=== PATIENT | male | born 1990 | race Caucasian/White ===

== ENCOUNTER 2017-09-02 10:40 | Emergency (ER) | payer OTHER ==
[~2017-09-02] VITALS: Ht 172.7 cm; Wt 95.3 kg
[2017-09-02] MEDS ORDERED: SODIUM CHLORIDE 0.9% 1000ML 1,000 ML ONE (10:54)
[2017-09-02] MEDS ORDERED: TETRACAINE HCL 0.5% OPTH SOLN 4 ML BTL OP ONE (11:00)
[2017-09-02] MEDS ORDERED: SODIUM CHLORIDE 0.9% 1000ML 1,000 ML IV SCH ×2 (11:00)
[2017-09-02] MEDS ORDERED: EYE IRRIGATION (OPTH) 120 ML BTL OP ONE (11:00)
[2017-09-02] MEDS ORDERED: FLUORESCEIN SOD(OPTH) 1 MG STRP OP ONE (11:00)
[2017-09-02] MEDS ORDERED: HYDROCODONE/APAP 10MG-325MG TAB PO ONE (11:15)
[2017-09-02 11:56] VITALS: BP 116/76
== END 2017-09-02 11:48 | disposition home or self-care (01) ==
LOC: ER 10:40
DX: H57.13 Ocular pain, bilateral (principal); T26.62XA Corrosion of cornea and conjunctival sac, left eye, initial encounter; T26.61XA Corrosion of cornea and conjunctival sac, right eye, initial encounter; T52.0X1A Toxic effect of petroleum products, accidental (unintentional), initial encounter
CPT/HCPCS: 99284; J7030